=== PATIENT | male | born 1990 | race Caucasian/White ===

== ENCOUNTER 2018-10-05 21:51 | Emergency (ER) | payer SELFPAY ==
[2018-10-05 22:03] VITALS: BP 156/84; PULSE 105; TEMP 97.9; BMI 26.4
--- NOTE | 2018-10-05 22:20 | PDOC ---
History of Present Illness - General Chief Complaint: Abscess Boil Stated Complaint: CYST COCCYX Time Seen by Provider: 10/05/18 21:58 - History of Present Illness Initial Comments: This 28-year-old man, otherwise healthy but with a history of pilonidal cyst presents with painful swelling at the base of his spine for the last few days. Patient had one previous episode of pilonidal abscess that was drained approximately 8 years ago. The area was nonpainful, not swollen until a few days ago when he noted pain there. This pain and swelling has increased in the last 24 hours. He has made an appointment with surgeon in 4 days but reports the ER for evaluation of possible drainage of abscess. Patient denies fever/ chills, nausea/vomiting or anterior abdominal pain. He has no other history of abscess/cellulitis. No history of resistant organism colonization or infection. Past History - Past Medical History Allergies/Adverse Reactions: Allergies Allergy/AdvReac Type Severity Reaction Status Date / Time No Known Allergies Allergy Unverified 10/05/18 21:53 Home Medications: Ambulatory Orders Amox-Tr/K Cl [Augmentin - 875Mg Tablet] 1 tab PO BID #14 tablet 10/05/18 COPD: No - Suicide/Smoking/Psychosocial Hx Smoking History: Current some day smoker Number of Cigarettes Smoked Daily: 0 Information on smoking cessation initiated: No Review of Systems - Review of Systems Able to Perform ROS?: Yes Comments:: 12 point review of systems is negative except for what is noted in the history of present illness *Physical Exam - Vital Signs Last Vital Signs Temp Pulse Resp BP Pulse Ox 97.9 F 105 H 18 156/84 98 10/05/18 21:55 10/05/18 21:55 10/05/18 21:55 10/05/18 21:55 10/05/18 21:55 - Physical Exam Comments: GENERAL: Adult male, alert and oriented 3, lying prone on stretcher, in no acute distress ABDOMEN:.normal bowel sounds No guarding,tenderness or rebound.No masses No distention. RECTAL: 2 cm x 2 cm edematous, moderately tender, mildly fluctuant area left of the jose carlos cleft at the base of the spine Area is faintly erythematous; there is no discharge noted. No masses/tenderness in the perirectal area EXTREMITIES: Normal range of motion, no edema. No clubbing or cyanosis. No erythema, or tenderness. NEUROLOGICAL: Cranial nerves II through XII grossly intact. Normal speech. No focal neurological deficits. MUSCULOSKELETAL: Back non-tender to palpation, no CVA tenderness SKIN: Warm, Dry, normal turgor, no rashes or lesions noted. Moderate Sedation - Procedure Monitoring Vital Signs: Procedure Monitoring Vital Signs Temperature 97.9 F 10/05/18 21:55 Pulse Rate 105 H 10/05/18 21:55 Respiratory Rate 18 10/05/18 21:55 Blood Pressure 156/84 10/05/18 21:55 O2 Sat by Pulse Oximetry (%) 98 10/05/18 21:55 Procedures - Incision and Drainage I&D Site: Left: Other (Pilonidal) Betadine cleansed: No (chlorhexidine/ethanol) Anesthesia: 1% Lidocaine Volume(ml): 2 Blade Size: 11 Attempts: 1 Iodinated Packin/ in Complications: none Dressing: Yes (sterile gauze) Progress: Area at the base of the spine cleansed using Hibiclens/ethanol and sterilely draped. 2 mL of 1% lidocaine injected into the area for local anesthesia. 2 cm incision made with #11 blade. Purulent discharge mixed with blood obtained from the abscess. Specimen sent for culture and sensitivity. Wound explored using small clamp and any septations broken up. Wound irrigated using 30 mL of sterile normal saline. Small amount of quarter-inch gauze introduced into the cavity. Sterile gauze dressing placed on surface for coverage *DC/Admit/Observation/Transfer Diagnosis at time of Disposition: Pilonidal abscess - Discharge Dispostion Disposition: HOME Condition at time of disposition: Stable - Prescriptions Prescriptions: Amox-Tr/K Cl [Augmentin - 875Mg Tablet] 1 tab PO BID #14 tablet - Referrals - Patient Instructions Printed Discharge Instructions: DI for Pilonidal Cyst Drainage and Removal Additional Instructions: Can shower as usual remove packing on Sunday AM if still in place Augmentin 875/125 twice a day for one week; take with food ibuprofen/naproxen/acetaminophen as needed for pain followup with surgeon on Sunday, 10/09 as scheduled - Post Discharge Activity
[2018-10-05] MEDS ORDERED: AMOX TR/POT CLAV 875MG/125MG TABLETS (FP) PO ONE (23:29)
[2018-10-05] MEDS ORDERED: AMOX TR/POT CLAV 875MG/125MG TABLETS (FP) ONE (23:32)
== END 2018-10-05 23:36 | disposition home or self-care (01) ==
LOC: FER 21:51
PROC: 0H98XZZ Drainage of Buttock Skin, External Approach (ICD-10-PCS; principal; 2018-10-05)
DX: L05.91 Pilonidal cyst without abscess (principal)
CPT/HCPCS: 87070; 87205; 99281-25